=== PATIENT | female | born 1960 | race African-American/Black ===

== ENCOUNTER 2020-08-02 13:47 | Emergency (ER) | payer OTHER, SELFPAY ==
[2020-08-02 14:00] VITALS: BP 172/104; PULSE 83; RESP 18; TEMP 36.7; O2SAT 99
--- NOTE | 2020-08-02 14:10 | ECG_ITS ---
Measurements Intervals [place] Rate: 79 P: 45 RI: 160 QRS: -11 QRSD: 104 T: 31 QT: 343 QTc: 394 Interpretive Statements SINUS RHYTHM DELAYED PRECORDIAL R/S TRANSITION NONSPECIFIC T-WAVE ABNORMALITY- ANTEROLAT/INF LEADS BASELINE WANDER- I, II BORDERLINE ECG Electronically Signed On 08-02-2020 14:33:44 [employer] by Jose Aguilar D.O.
[2020-08-02] MEDS: SODIUM CHLORIDE 0.9% IV 1,000 ML 999 ML IV CONT (15:11)
[2020-08-02 15:16] LABS: Basophils Percent Auto 0.4 % (0.2-1.2); Eosinophils Absolute Auto 0.1 K/mm3 (0-0.3); Eosinophils Percent Auto 1.2 % (0-4.4); Hematocrit 37.2 % (37.0-47.0); Hemoglobin 11.5 g/dL (12.0-15.0); Immature Granulocyte Absolute 0.03 K/mm3 (0.00-0.031); Immature Granulocyte Percent A 0.4 % (0-0.5); Lymphocytes Absolute Auto 1.73 K/mm3 (0.9-3.2); Lymphocytes Percent Auto 23.1 % (18.3-44.2); Mean Corpuscular HGB Conc 30.9 g/dl (32-36); Mean Corpuscular Hemoglobin 25.7 pg (26-34); Mean Corpuscular Volume 83.2 fl (80-100); Mean Platelet Volume 11.4 fl (7.4-10.4); Monocytes Absolute Auto 0.7 K/mm3 (0.1-0.6); Monocytes Percent Auto 9.1 % (2.6-8.5); Neutrophils Absolute Auto 4.9 K/mm3 (1.3-6.7); Neutrophils Percent Auto 65.8 % (45.5-73.1); Platelet Count Result 262 k/mm3 (150-375); Red Blood Count 4.47 M/mm3 (4.2-5.4); Red Cell Distribution Width 14.1 % (11.5-14.5); White Blood Count 7.5 K/mm3 (4.5-10.0)
[2020-08-02 15:32] LABS: Anion Gap 8 mmol/L (8-16); Blood Urea Nitrogen 12 mg/dL (7-17); Calcium 9.4 mg/dL (8.4-10.2); Carbon Dioxide 29 mmol/L (22-30); Chloride 103 mmol/L (98-107); Estimated CRCL calculation 94 ml/min; Estimated Glomerular Filt Rate > 60; Glucose 125 mg/dL (65-105); Sodium 140 mmol/L (137-145)
[2020-08-02 15:56] VITALS: BP 157/85; BP 169/92; PULSE 100; PULSE 96
[2020-08-02 15:58] VITALS: BP 170/97; PULSE 99
[2020-08-02 16:04] LABS: Add Urine Microscopic? NO; Appearance Urine Clear (Clear); Bilirubin Urine Negative (Negative); Blood Urine Negative (Negative); Color Urine Straw (Yellow); Glucose Urine UA Negative (Negative); Ketones Urine Negative (Negative); Leukocyte Esterase Ur Negative LEU/UL (Negative); Nitrate Urine Negative (Negative); Protein Urine Negative (Negative); Specific Grav Ur 1.016 (1.001-1.035); Urobilinogen Urine Negative mg/dL (<2.0)
--- NOTE | 2020-08-02 17:39 | ED.DIZZY ---
HPI - Dizziness General Chief Complaint: Dizziness Stated Complaint: syncope yesterday with dizziness Time Seen by Provider: 08/02/20 13:54 History of Present Illness HPI Narrative: Patient is a 60-year-old female who presents to the ER with an episode of dizziness. Lasted a couple seconds. Reports she just finished eating her pork fried rice and had stood up to go to the refrigerator when she got dizzy. No nausea or vomiting or loss of consciousness. No numbness or tingling or weakness. Has not had this previously. Reports normal oral intake over the last few days. No dark black stools. Patient did not have tunnel vision and did not have rotational dizziness. Reports she just felt unsteady for a moment. Related Data Allergies Allergy/AdvReac Type Severity Reaction Status Date / Time No Known Allergies Allergy Verified 08/02/20 14:04 Review of Systems Review of Systems: All systems reviewed & are unremarkable except as noted in HPI and below Constitutional: Constitutional: Denies chills, Denies fever(s) and Denies weakness ENT: Denies nasal congestion and Denies sore throat Cardiovascular: Cardiovascular: Denies chest pain, Denies rapid heart rate and Denies radiating jaw, neck or arm pain Respiratory: Respiratory: Denies cough and Denies dyspnea Neurologic: Reports dizziness, Denies syncope, Denies focal weakness and Denies numbness PMFSH Past Medical History Medical History (Updated 08/02/20 @ 17:45 by Roby Machado MD) Healthy female adult Surgical History Surgical History (Updated 08/02/20 @ 17:41 by Roby Machado MD) No history of previous surgery Social History Social History (Updated 08/02/20 @ 17:41 by Roby Machado MD) Smoking status: Never smoker Exam Narrative: Exam Narrative: GENERAL: Well-appearing, well-nourished, and in no acute distress. HEAD: Normocephalic, atraumatic. ENT: Normal TMs bilaterally. Moist mucous membranes. CHEST: Clear to auscultation. No respiratory distress. HEART: Regular rate and rhythm. Normal peripheral pulses. ABDOMEN: Soft, nontender, nondistended. EXTREMITIES: Normal range of motion. No edema. SKIN: Warm, dry, no rash. NEURO: Alert and oriented x3. PSYCH: Normal mood and affect. Course Course Emergency Course: Patient feels well. Orthostatics negative. May have some motion sickness. Discharge. Vital Signs Vital signs: Vital Signs Temperature 98.0 F 08/02/20 14:00 Pulse Rate 83 08/02/20 14:00 Respiratory Rate 18 08/02/20 14:00 Blood Pressure 172/104 H 08/02/20 14:00 Pulse Oximetry 99 08/02/20 14:00 Temperature 98.0 F 08/02/20 14:00 Pulse Rate 99 08/02/20 15:58 Respiratory Rate 18 08/02/20 14:00 Blood Pressure 170/97 H 08/02/20 15:58 Pulse Oximetry 99 08/02/20 14:00 MDM - Dizziness Lab Data Result diagrams: 08/02/20 14:18 08/02/20 14:18 Labs: Lab Results 08/02/20 08/02/20 08/02/20 Range/Units 14:18 14:18 15:58 WBC 7.5 (4.5-10.0) K/mm3 RBC 4.47 (4.2-5.4) M/mm3 Hgb 11.5 L (12.0-15.0) g/dL Hct 37.2 (37.0-47.0) % MCV 83.2 (80-100) fl MCH 25.7 L (26-34) pg MCHC 30.9 L (32-36) g/dl RDW 14.1 (11.5-14.5) % Plt Count 262 (150-375) k/mm3 MPV 11.4 H (7.4-10.4) fl Immature Gran % (Auto) 0.4 (0-0.5) % Neut % (Auto) 65.8 (45.5-73.1) % Lymph % (Auto) 23.1 (18.3-44.2) % [place] % (Auto) 9.1 H (2.6-8.5) % Eos % (Auto) 1.2 (0-4.4) % Baso % (Auto) 0.4 (0.2-1.2) % Lymph # (Auto) 1.73 (0.9-3.2) K/mm3 [place] # (Auto) 0.7 H (0.1-0.6) K/mm3 Eos # (Auto) 0.1 (0-0.3) K/mm3 Baso # (Auto) 0.0 (0.0-0.1) K/mm3 Abs Immat Gran (auto) 0.03 (0.00-0.031) K/mm3 Absolute Neuts (auto) 4.9 (1.3-6.7) K/mm3 Absolute Nucleated RBC 0.0 (0.0-0.012) K/mm3 Nucleated RBC % 0.0 (0.0-0.2) % Sodium 140 (137-145) mmol/L Potassium 4.0 (3.4-5.0) mmol/L Chloride 103 (9
[2020-08-02 17:55] VITALS: BP 164/89; PULSE 64; RESP 19; O2SAT 99
== END 2020-08-02 17:56 | disposition home or self-care (01) ==
PROVIDERS: Emergency Provider Emergency Medicine
DX: H81.10 Benign paroxysmal vertigo, unspecified ear (principal)
CPT/HCPCS: 36415; 80048; 81003; 85025; 93005; 96360; 96361; 99283; J7030

== ENCOUNTER 2020-09-15 11:44 | Outpatient (CLI) | payer OTHER, SELFPAY ==
[2020-09-15 12:18] LABS: Alanine Aminotransferase 35 U/L (4-35); Albumin Level 4.3 g/dL (3.5-5.1); Alkaline Phosphatase 92 U/L (38-126); Anion Gap 7 mmol/L (8-16); Aspartate Amino Transferase 38 U/L (14-36); Bilirubin,Total 0.6 mg/dL (0.2-1.3); Blood Urea Nitrogen 9 mg/dL (7-17); Calcium 9.6 mg/dL (8.4-10.2); Carbon Dioxide 29 mmol/L (22-30); Chloride 106 mmol/L (98-107); Cholesterol 271 mg/dL (0-200); Estimated Glomerular Filt Rate > 60; Glucose 122 mg/dL (65-105); HDL Direct 50 mg/dL; Potassium 3.9 mmol/L (3.4-5.0); Sodium 142 mmol/L (137-145); Triglycerides 304 mg/dL (<150)
[2020-09-15 12:29] LABS: LDL Cholesterol Direct 65 mg/dL
[2020-09-15 12:48] LABS: Total Triiodothyronine (T3) 1.19 NG/ML (0.97-1.69)
[2020-09-15 13:00] LABS: Free T4 Free Thyroxine 0.81 ng/mL (0.78-2.19); Vitamin D 25 Hydroxy 13.2 ng/mL
== END 2020-09-15 11:45 | disposition home or self-care (01) ==
PROVIDERS: PCP Family Medicine; Visit Provider Nurse Practitioner
DX: H81.10 Benign paroxysmal vertigo, unspecified ear (principal); E55.9 Vitamin D deficiency, unspecified; Z13.6 Encounter for screening for cardiovascular disorders
CPT/HCPCS: 36415; 80053; 80061; 82306; 84439; 84443; 84480

== ENCOUNTER 2021-05-15 07:40 | Outpatient (CLI) | payer OTHER, SELFPAY ==
--- NOTE | ~2021-05-15 | MM_ITS ---
EXAMINATION: MM screening andrae BI w humberto HISTORY: Screening TECHNIQUE: Craniocaudal and mediolateral oblique 3-D tomosynthesis images were obtained and synthetic 2-D images were generated. CAD analysis was submitted and interpreted. COMPARISON: No prior mammogram is available for comparison at this institution. BREAST PARENCHYMAL COMPOSITION: There are scattered areas of fibroglandular density. FINDINGS: There is no evidence of suspicious mass, calcification, or architectural distortion to sugg est malignancy in either breast. There has been no suspicious interval change. IMPRESSION: 1. No mammographic evidence of malignancy. 2. Recommend routine screening mammography in one year. BI-RADS Category 1: Negative Reviewed, dictated and finalized at location A.
== END 2021-05-15 07:41 | disposition home or self-care (01) ==
LOC: ANHIMG 07:43
PROVIDERS: PCP Family Medicine; Visit Provider Nurse Practitioner
DX: Z12.31 Encounter for screening mammogram for malignant neoplasm of breast (principal)
CPT/HCPCS: 77063; 77067